=== PATIENT | female | born 1985 | race Caucasian/White ===

== ENCOUNTER 2018-02-17 18:32 | Emergency (ER) | payer OTHER ==
[2018-02-17 19:45] LABS: Urine Blood 1+ (NEG); Urine Glucose NEGATIVE (NEG); Urine Protein 1+ (NEG); Urine Specific Gravity 1.015 (1.005-1.030)
[2018-02-17] MEDS ORDERED: NA CHLORIDE 0.9% 1,000 ML ONE (20:18)
[2018-02-17] MEDS ORDERED: MORPHINE 4 MG/ML SYR ONE (20:18)
[2018-02-17] MEDS ORDERED: ONDANSETRON 4 MG/2 ML VIAL ONE (20:18)
[2018-02-17 20:25] LABS: Absolute Monocytes 0.8 K/uL (0.1-1.3); Absolute Neutrophil 9.4 K/uL (1.8-8.0); Basophils % 0.8 % (0-1.3); Eosinophils % 2.6 % (0-4.4); Hematocrit 40.4 % (36.0-45.0); Lymphocytes % 27.3 % (15.3-44.8); MPV 8.5 fL (7.6-11.3); Monocytes % 5.2 % (3.3-12.3); RBC Red Blood Cell Count 4.88 M/uL (3.86-4.86)
[2018-02-17] MEDS ORDERED: CEFTRIAXONE/SWI 1gm 1 GM/10 ML SYR ONE (20:37)
[2018-02-17 20:48] LABS: ALT/SGPT 19 U/L (12-78); AST/SGOT 12 U/L (15-37); Albumin 3.6 g/dL (3.4-5.0); Alkaline Phosphatase 125 U/L (45-117); BUN Blood Urea Nitrogen 11 mg/dL (7-18); Bicarbonate 27 mmol/L (21-32); Bilirubin Direct < 0.1 mg/dL (0-0.2); Bilirubin Total 0.2 mg/dL (0.2-1.0); Glucose Level 89 mg/dL (74-106); Lipase 110 U/L (73-393); Potassium 3.8 mmol/L (3.5-5.1); Protein, Total 8.3 g/dL (6.4-8.2); Sodium Level 138 mmol/L (136-145)
[2018-02-17 20:53] LABS: Urine Bacteria 20-50 /HPF (<20); Urine Culture Reflex Order NOT NEEDED; Urine Mucus 2+ /HPF (NONE SEEN)
[2018-02-17 20:56] LABS: Blood Morphology Comment NOT SEEN (NOT SEEN); Platelet Estimate ADEQ; Urine White Blood Cell Casts OK
--- NOTE | 2018-02-17 21:16 | RAD REPORT ---
EXAM DESCRIPTION: CTAbdomen Pelvis W Contrast - 02/17/2018 9:03 pm CLINICAL HISTORY: Abdominal pain. FLANK PAIN COMPARISON: No comparisons TECHNIQUE: Biphasic CT imaging of the abdomen and pelvis was performed with 100 ml non-ionic IV cont rast. All CT scans are performed using dose optimization technique as appropriate and may include automated exposure control or mA/KV adjustment according to patient size. FINDINGS: The lung bases are clear.Cholecystectomy clips. The liver, spleen, pancreas, adrenal glands are within normal limits. Subtle thickening of the uroepi thelium of both collecting systems noted, greater on the left, which could indicate ascending urinary tract infection. No bowel obstruction, free air, free fluid or abscess. The appendix is normal. No evidence of signi ficant lymphadenopathy. No suspicious bony findings. IMPRESSION: Equivocal findings of ascending urinary tract infection is present. Advise correlation w ith urinalysis. Otherwise, no acute finding is demonstrated.
--- NOTE | 2018-02-17 21:44 | EDPHYS ---
Physician Documentation [facility] Name: Yuliya Sharpe Age: 32 yrs Sex: Female : 1985 Arrival Date: 02/17/2018 Time: 18:35 Bed 19 Private MD: ED Physician Josesito Lopez HPI: 02/17 20:00 This 32 yrs old Female presents to ER via Ambulatory with complaints of Low pm1 Back Pain. 20:00 The patient presents with pain that is acute. The symptoms are located in the low back. pm1 The pain does not radiate. The problem was sustained from unknown cause. Onset: The symptoms/episode began/occurred 1 month(s) ago. Modifying factors: The patient symptoms are alleviated by nothing, the patient symptoms are aggravated by nothing. Associated signs and symptoms: Pertinent negatives: abdominal pain, dysuria, fever, nausea, vomiting. Severity of symptoms: in the emergency department the symptoms are actually worse. The patient has not experienced similar symptoms in the past. Patient with urinary tract symptoms about 1 month ago that she treated with OTC medications and cranberry juice. Symptoms of burning with urination have resolved but she has had some on and off lower back pain for the past month that is worse the past 3 days. 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 - Social history:: Smoking status: Patient/guardian denies using tobacco. - Ebola Screening: : No symptoms or risks identified at this time. ROS: 20:00 Constitutional: Negative for fever, chills, and weight loss, Eyes: Negative for injury, pm1 pain, redness, and discharge, ENT: Negative for injury, pain, and discharge, Neck: Negative for injury, pain, and swelling, Cardiovascular: Negative for chest pain, palpitations, and edema, Respiratory: Negative for shortness of breath, cough, wheezing, and pleuritic chest pain, Abdomen/GI: Negative for abdominal pain, nausea, vomiting, diarrhea, and constipation. 20:00 : Negative for injury, bleeding, discharge, and swelling, MS/Extremity: Negative for injury and deformity, Skin: Negative for injury, rash, and discoloration, Neuro: Negative for headache, weakness, numbness, tingling, and seizure. 20:00 Back: Positive for of the low back area, pain. Exam: 20:00 Constitutional: This is a well developed, well nourished patient who is awake, alert, pm1 and in no acute distress. Head/Face: Normocephalic, atraumatic. Eyes: Pupils equal round and reactive to light, extra-ocular motions intact. Lids and lashes normal. Conjunctiva and sclera are non-icteric and not injected. Cornea within normal limits. Periorbital areas with no swelling, redness, or edema. ENT: Nares patent. No nasal discharge, no septal abnormalities noted. Tympanic membranes are normal and external auditory canals are clear. Oropharynx with no redness, swelling, or masses, exudates, or evidence of obstruction, uvula midline. Mucous membranes moist. Neck: Trachea midline, no thyromegaly or masses palpated, and no cervical lymphadenopathy. Supple, full range of motion without nuchal rigidity, or vertebral point tenderness. No Meningismus. Chest/axilla: Normal chest wall appearance and motion. Nontender with no deformity. No lesions are appreciated. Cardiovascular: Regular rate and rhythm with a normal S1 and S2. No gallops, murmurs, or rubs. Normal PMI, no JVD. No pulse deficits. Respiratory: Lungs have equal breath sounds bilaterally, clear to auscultation and percussion. No rales, rhonchi or wheezes noted. No increased work of breathing, no retractions or nasal flaring. Abdomen/GI: Soft, non-tender, with normal bowel sounds. No distension or tympany. No guarding or rebound. No evidence of tenderness throughout. 20:00 Skin: Warm, dry with normal turgor. Normal color with no rashes, no lesions, and no evidence of cellulitis. MS/ Extremity: Pulses equal, no cyanosis. Neurovascular intact. Full, normal range of motion. 20:00 Back: pain, that is mild, of the low back area. 20:00 Neuro: Orientation: is normal, Motor: is normal, moves all fours, Gait: is steady, at a normal pace, without difficulty. Vital Signs: 19:30 BP 128 / 94; Pulse 98; Resp 16; Temp 97.3; Pulse Ox 100% on R/A; Weight 92.99 kg; aa1 Height 5 ft. 0 in. (152.40 cm); Pain 9/10; 20:26 BP 132 / 92; Pulse 97; Resp 18; Pulse Ox 100% on R/A; ca1 21:42 BP 131 / 91; Pulse 99; Resp 18; Pulse Ox 100% on R/A; ca1 19:30 Body Mass Index 40.04 (92.99 kg, 152.40 cm) aa1 MDM: 19:15 Patient medically screened. chanda 21:43 Data reviewed: vital signs. Data interpreted: Pulse oximetry: on room air is 100 %. pm1 Interpretation: normal. Counseling: I had a detailed discussion with the patient and/or guardian regarding: the historical points, exam findings, and any diagnostic results supporting the discharge/admit diagnosis, lab results, radiology results, the need for outpatient follow up, to return to the emergency department if symptoms worsen or persist or if there are any questions or concerns that arise at home. 02/17 19:34 Order name: Urine Dipstick--Ancillary (enter results); Complete Time: 20: [facility] 02/17 19:34 Order name: Urine --Ancillary (enter results); Complete Time: 20:17 [facility] 02/17 19:35 Order name: Basic Metabolic Panel; Complete Time: 21: pm02/17 19:35 Order name: CBC with Diff; Complete Time: 21: 02/17 19:35 Order name: Creatinine for Radiology; Complete Time: 21:02/17 19:35 Order name: Hepatic Function; Complete Time: 21: pm02/17 19:35 Order name: CT Abd/Pelvis - W/Contrast: IV contrast only; Complete Time: 21:38 pm02/17 19:35 Order name: Lipase; Complete Time: 21: 02/17 19:36 Order name: Urine Microscopic Only; Complete Time: 21: pm1 02/17 20:17 Order name: Urine Culture [facility] 02/17 20:31 Order name: CBC Smear Scan; Complete Time: 21: EDSD 02/17 19:35 Order name: IV Saline Lock; Complete Time: 20:13 pm1 02/17 19:35 Order name: Labs collected and sent; Complete Time: 20:13 pm1 02/17 19:36 Order name: Urine Dipstick-Ancillary (obtain specimen); Complete Time: 19:54 pm1 02/17 19:36 Order name: Urine Test (obtain specimen); Complete Time: 19:54 pm1 Administered Medications: 20:10 Drug: morphine 4 mg Route: IVP; Site: left antecubital; aa1 21:10 Follow up: Response: No adverse reaction; Pain is decreased ca1 20:15 Drug: Zofran 4 mg Route: IVP; Site: left antecubital; aa1 21:30 Follow up: Response: No adverse reaction; Nausea is decreased ca1 20:20 Drug: NS 0.9% 1000 ml Route: IV; Rate: 1000 ml; Site: left antecubital; aa1 20:25 Drug: Rocephin 1 grams Route: IV; Rate: calculated rate; Site: left antecubital; aa Disposition: 02/17/18 21:43 Discharged to Home. Impression: Urinary tract infection, site not specified. - Condition is Stable. - Discharge Instructions: Urinary Tract Infection, Adult. - Prescriptions for Levaquin 750 mg Oral Tablet - take 1 tablet by ORAL route once daily for 5 days; 5 tablet. Tylenol- Codeine #3 300-30 mg Oral Tablet - take 2 tablets by ORAL route every 6 hours As needed; 20 tablet. - Medication Reconciliation Form, Thank You Letter, Antibiotic Education, Prescription Opioid Use, Work release form form. - Follow up: Emergency Department; When: As needed; Reason: Worsening of condition. Follow up: Private Physician; When: 2 - 3 days; Reason: Recheck today's complaints, Continuance of care, Re-evaluation by your physician. - Problem is new. - Symptoms have improved. Addendum: 02/21/2018 06:56 Co-signature as Attending Physician, Josesito Lopez MD I agree with the assessment and c pope plan of care. Signatures: Dispatcher [employer] Claudia Jessica RN RN aa1 Josesito Lopez MD MD cha Marinas, Patrick, COMMERCIAL CENTER MANAGER COMMERCIAL CENTER MANAGER pm1 Aminta Flores RN RN ca1 Corrections: (The following items were deleted from the chart) 02/17 22:07 21:43 02/17/2018 21:43 Discharged to Home. Impression: Urinary tract infection, site ca1 not specified. Condition is Stable. Forms are Medication Reconciliation Form, Thank You Letter, Antibiotic Education, Prescription Opioid Use. Follow up: Emergency Department; When: As needed; Reason: Worsening of condition. Follow up: Private Physician; When: 2 - 3 days; Reason: Recheck today's complaints, Continuance of care, Re-evaluation by your physician. Problem is new. Symptoms have improved. pm1
--- NOTE | 2018-02-17 21:44 | ER ---
Nurse's Notes [facility] Name: Yuliya Sahrpe Age: 32 yrs Sex: Female : 1985 Arrival Date: 02/17/2018 Time: 18:35 Bed 19 Private MD: Diagnosis: Urinary tract infection, site not specified Presentation: 02/17 19:26 Presenting complaint: Patient states: int L low back pain x 1 month but reports pain aa1 has become worse today. States pain sometimes radiates to LLQ and had N/V a few days ago. Transition of care: patient was not received from another setting of care. Onset of symptoms was January 2018. Risk Assessment: Do you want to hurt yourself or someone else? Patient reports no desire to harm self or others. Initial Sepsis Screen: Does the patient meet any 2 criteria? HR > 90 bpm. Does the patient have a suspected source of infection? No. Patient's initial sepsis screen is negative. Care prior to arrival: None. 19:26 Method Of Arrival: Ambulatory aa1 19:26 Acuity: LIT 3 aa1 Triage Assessment: 19:30 General: Appears in no apparent distress. comfortable, Behavior is calm, cooperative, aa1 appropriate for age. 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 - Social history:: Smoking status: Patient/guardian denies using tobacco. - Ebola Screening: : No symptoms or risks identified at this time. Screenin:35 Abuse screen: Denies threats or abuse. Denies injuries from another. Nutritional ca1 screening: No deficits noted. Tuberculosis screening: No symptoms or risk factors identified. Fall Risk None identified. Assessment: 19:35 General: Appears in no apparent distress. uncomfortable, Behavior is calm, cooperative, ca1 appropriate for age. Pain: Complains of pain in abdomen Pain radiates to back Pain currently is 8 out of 10 on a pain scale. 19:35 Neuro: Level of Consciousness is awake, alert, obeys commands, Oriented to person, ca1 place, time, situation. Cardiovascular: Heart tones S1 S2 present Capillary refill < 3 seconds Patient's skin is warm and dry. Respiratory: Airway is patent Trachea midline Respiratory effort is even, unlabored, Respiratory pattern is regular, symmetrical, Breath sounds are clear bilaterally. GI: Abdomen is round non-distended, Bowel sounds present X 4 quads. Abd is soft Abdomen is tender to palpation Reports nausea, vomiting, Patient currently denies constipation, diarrhea. : No signs and/or symptoms were reported regarding the genitourinary system. EENT: No signs and/or symptoms were reported regarding the EENT system. Derm: Skin is intact, is healthy with good turgor, Skin is pink, warm \T\ dry. Musculoskeletal: Circulation, motion, and sensation intact. Capillary refill < 3 seconds. 20:46 Reassessment: Patient appears in no apparent distress at this time. Patient and/or ca1 family updated on plan of care and expected duration. Pain level reassessed. Patient is alert, oriented x 3, equal unlabored respirations, skin warm/dry/pink. 21:52 Reassessment: Patient appears in no apparent distress at this time. Patient and/or ca1 family updated on plan of care and expected duration. Pain level reassessed. Patient is alert, oriented x 3, equal unlabored respirations, skin warm/dry/pink. Vital Signs: 19:30 BP 128 / 94; Pulse 98; Resp 16; Temp 97.3; Pulse Ox 100% on R/A; Weight 92.99 kg; aa1 Height 5 ft. 0 in. (152.40 cm); Pain 9/10; 20:26 BP 132 / 92; Pulse 97; Resp 18; Pulse Ox 100% on R/A; ca1 21:42 BP 131 / 91; Pulse 99; Resp 18; Pulse Ox 100% on R/A; ca1 19:30 Body Mass Index 40.04 (92.99 kg, 152.40 cm) aa1 ED Course: 18:35 Patient arrived in ED. rg4 19:11 Gerson Tyler NP is PHCP. pm1 19:11 Josesito Lopez MD is Attending Physician. pm1 19:14 Aminta Flores RN is Primary Nurse. ca1 19:29 Triage completed. aa1 19:30 Arm band placed on right wrist. aa1 19:31 Urine collected: clean catch specimen. aa1 19:35 Patient has correct armband on for positive identification. Placed in gown. Bed in low ca1 position. Call light in reach. Side rails up X 1. manager monitoring on. Pulse ox on. NIBP on. Warm blanket given. 20:02 Radiology exam delayed due to lab results not completed at this time. (BUN/Creatinine). jj2 20:05 Initial lab(s) drawn, by me, sent to lab. Inserted saline lock: 20 gauge in left aa1 antecubital area, using aseptic technique. Blood collected. 20:25 Radiology exam delayed due to lab results not completed at this time. (BUN/Creatinine). jj2 20:[address] via wheelchair. jj2 21:03 CT Abd/Pelvis - W/Contrast: IV contrast only In Process Unspecified. EDMS 21:11 CT completed. Patient tolerated procedure well. Patient moved back from CT. vm2 22:05 No provider procedures requiring assistance completed. ca1 22:05 IV discontinued, intact, bleeding controlled, No redness/swelling at site. ca1 Administered Medications: 20:10 Drug: morphine 4 mg Route: IVP; Site: left antecubital; aa1 21:10 Follow up: Response: No adverse reaction; Pain is decreased ca1 20:15 Drug: Zofran 4 mg Route: IVP; Site: left antecubital; aa1 21:30 Follow up: Response: No adverse reaction; Nausea is decreased ca1 20:20 Drug: NS 0.9% 1000 ml Route: IV; Rate: 1000 ml; Site: left antecubital; aa1 20:25 Drug: Rocephin 1 grams Route: IV; Rate: calculated rate; Site: left antecubital; aa1 Outcome: 21:43 Discharge ordered by MD. pm1 22:05 Discharged to home ambulatory, with family. ca1 22:05 Condition: stable 22:05 Discharge instructions given to patient, family, Instructed on discharge instructions, follow up and referral plans. medication usage, Demonstrated understanding of instructions, follow-up care, medications, Prescriptions given X 2. 22:07 Patient left the ED. ca1 Addendum: 02/20/2018 08:06 Addendum: Culture Results: Positive urine culture. No further action required. Bacteria i w sensitive to prescribed antibiotic. Signatures: Dispatcher [employer] EDMS Irion, Claudia, RN RN aa1 Eliecer, Jabier jMirta Ragsdale RN RN iw Gerson Tyler, SPECIAL PROCEDURE TECH SPECIAL PROCEDURE TECH pm1 Lee Ann Funez4 Maddie Richardson 2 Aminta Flores RN RN ca1 Corrections: (The following items were deleted from the chart) 02/18 01:30 01:29 Response: No adverse reaction; Nausea is decreased ca1 ca1
== END 2018-02-17 22:07 | disposition home or self-care (01) ==
LOC: ER 18:32
DX: N39.0 Urinary tract infection, site not specified (principal)
CPT/HCPCS: 36415; 74177; 80048; 80076; 81003; 81015; 81025; 83690; 85025; 87077; 87086; 87088; 87186; 96374; 96375; 99285; J0696; J2405; J7030; Q9967

== ENCOUNTER 2018-05-18 18:41 | Emergency (ER) | payer OTHER ==
[2018-05-18 19:28] LABS: Urine Blood TRACE (NEG); Urine Glucose NEGATIVE (NEG); Urine Protein NEGATIVE (NEG); Urine Specific Gravity 1.025 (1.005-1.030); Urine pH 5.5 (5.0-7.0)
[2018-05-18] MEDS ORDERED: DIPHENHYDRAMINE 50 MG/ML VIAL ONE (19:28)
[2018-05-18] MEDS ORDERED: NA CHLORIDE 0.9% 1,000 ML ONE (19:28)
[2018-05-18] MEDS ORDERED: METOCLOPRAMIDE 10 MG/2mL INJ ONE (19:28)
[2018-05-18 19:31] LABS: Absolute Lymphocytes (CBC) 3.4 K/uL (0.7-4.9); Absolute Monocytes 0.8 K/uL (0.1-1.3); Absolute Neutrophil 9.2 K/uL (1.8-8.0); Basophils % 0.5 % (0-1.3); Hematocrit 39.9 % (36.0-45.0); MPV 8.4 fL (7.6-11.3); Monocytes % 5.7 % (3.3-12.3); RBC Red Blood Cell Count 4.87 M/uL (3.86-4.86)
[2018-05-18 19:46] LABS: ALT/SGPT 25 U/L (12-78); AST/SGOT 17 U/L (15-37); Albumin 3.8 g/dL (3.4-5.0); Alkaline Phosphatase 103 U/L (45-117); BUN Blood Urea Nitrogen 10 mg/dL (7-18); Bicarbonate 28 mmol/L (21-32); Bilirubin Direct 0.1 mg/dL (0-0.2); Bilirubin Total 0.3 mg/dL (0.2-1.0); Glucose Level 111 mg/dL (74-106); Lipase 106 U/L (73-393); Potassium 3.8 mmol/L (3.5-5.1); Protein, Total 8.3 g/dL (6.4-8.2); Sodium Level 142 mmol/L (136-145)
--- NOTE | 2018-05-18 19:55 | RAD REPORT ---
EXAM DESCRIPTION: CT - Head Brain Wo Cont - 05/18/2018 7:30 pm CLINICAL HISTORY: Headache COMPARISON: None. TECHNIQUE: Computed axial tomography of the head was obtained. IV contrast was not requested. All CT scans are performed using dose optimization technique as appropriate and may include automated exposure control or mA/KV adjustment according to patient size. FINDINGS: An intracranial bleed is not seen . The ventricles are normal in caliber. A prominent fluid collection within the posterior aspect of the posterior fossa most likely represent s a regan cisterna magna which is a normal variant Fluid within the sinuses/ mastoids is not seen. IMPRESSION: No acute intracranial abnormality is seen. If patient's symptoms persist MRI of the bra in would be recommended.
[2018-05-18] MEDS ORDERED: DEXAMETHASONE 10 MG/ML VIAL ONE (20:30)
[2018-05-18] MEDS ORDERED: KETOROLAC 30 MG/ML INJ ONE (20:30)
--- NOTE | 2018-05-18 20:47 | EDPHYS ---
Physician Documentation [facility] Name: Yuliya Sharpe Age: 33 yrs Sex: Female : 1985 Arrival Date: 05/18/2018 Time: 18:44 Bed 6 Private MD: ED Physician Jamey Peterson HPI: 05/18 18:56 This 33 yrs old Female presents to ER via Ambulatory with complaints of jmm Headache, Vomiting. 18:56 The patient complains of pain to the top of head, forehead, right spiritism and left jmm spiritism. Onset: The symptoms/episode began/occurred acutely, 1 hour(s) ago. Associated signs and symptoms: Pertinent positives: vomiting. Headache History: The patient has had previous headaches. This is a 33 year old female that presents to the ED with complaints of headache beginning approx 1 hour ago with vomiting. Patient denies history of migraine headaches but states she felt similar during when diagnosed with pancreatis. Patient denies abdominal pain. . 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 - Social history:: Smoking status: unknown. - Ebola Screening: : No symptoms or risks identified at this time. ROS: 18:56 Constitutional: Negative for fever, chills, and weight loss, Cardiovascular: Negative jmm for chest pain, palpitations, and edema, Respiratory: Negative for shortness of breath, cough, wheezing, and pleuritic chest pain. 18:56 Abdomen/GI: Positive for nausea, vomiting, Negative for abdominal pain. 18:56 Neuro: Positive for headache. 18:56 All other systems are negative. Exam: 18:56 Constitutional: This is a well developed, well nourished patient who is awake, alert, jmm and in obvious pain. Head/Face: atraumatic. Eyes: EOMI, no conjunctival erythema appreciated ENT: Moist Mucus Membranes Neck: Trachea midline, Supple Chest/axilla: Normal chest wall appearance and motion. Cardiovascular: Regular rate and rhythm. No edema appreciated Respiratory: Normal respirations, no respiratory distress appreciated Abdomen/GI: Non distended, soft Skin: General appearance color normal MS/ Extremity: Moves all extremities, no obvious deformities appreciated, no edema noted to the lower extremities 18:56 Neuro: Orientation: is normal, Mentation: is normal, Memory: is normal, Motor: is normal, Gait: is steady. 18:56 Psych: Behavior/mood is pleasant, cooperative. Vital Signs: 18:46 BP 126 / 96; Pulse 103; Resp 26; Temp 96.8; Pulse Ox 99% ; sv 19:51 BP 123 / 97; Pulse 78; Resp 16; Temp 98.7(O); Pulse Ox 100% on R/A; Pain 5/10; ak1 20:47 BP 114 / 69; Pulse 80; Resp 16; Temp 98.7; Pulse Ox 100% on R/A; ak1 MDM: 18:56 Patient medically screened. [facility] 20:30 Data reviewed: lab test result(s), radiologic studies, CT scan. [facility] 20:30 ED course: Patient;s pain is relieved in the ED. CT negative. Patient states she feels jm much better. I do not suspect SAH after negative CT findings within a 6 hour window. Patient is advised to follow up with neurology for further evaluation and otherwise given strict return precautions. patient understood and agrees with the plan of care. . 20:44 Data reviewed: vital signs, nurses notes. [facility] 05/18 19:01 Order name: Basic Metabolic Panel; Complete Time: 20:11 [facility] 05/18 19:01 Order name: CBC with Diff; Complete Time: 20:11 [facility] 05/18 19:01 Order name: Creatinine for Radiology; Complete Time: 20:11 [facility] 05/18 19:01 Order name: Hepatic Function; Complete Time: 20:11 [facility] 05/18 19:01 Order name: Lipase; Complete Time: 20:11 [facility] 05/18 19:17 Order name: Urine Dipstick--Ancillary (enter results); Complete Time: 19:31 cm6 05/18 19:01 Order name: IV Saline Lock; Complete Time: 19:19 [facility] 05/18 19:04 Order name: CT Head Brain wo Cont; Complete Time: 20:11 [facility] 05/18 19:17 Order name: Urine --Ancillary (enter results); Complete Time: 19:31 cm6 05/18 19:01 Order name: Labs collected and sent; Complete Time: 19: [facility] 05/18 19:01 Order name: Urine Dipstick-Ancillary (obtain specimen); Complete Time: : [facility] Administered Medications: 19:25 Drug: diphenhydrAMINE 12.5 mg Route: IVP; Site: left antecubital; ak1 19:45 Follow up: Response: No adverse reaction ak1 19:25 Drug: Reglan 10 mg Route: IVP; Site: left antecubital; ak1 19:44 Follow up: Response: No adverse reaction ak1 19:44 Drug: NS 0.9% 1000 ml Route: IV; Rate: 1 bolus; Site: left antecubital; ak1 21:01 Follow up: IV Status: Order to discontinue infusion ak1 20:23 Drug: Ketorolac 30 mg Route: IVP; Site: left antecubital; ak1 21:00 Follow up: Response: No adverse reaction ak1 20:23 Drug: Decadron - Dexamethasone 10 mg Route: IVP; Site: left antecubital; ak1 21:00 Follow up: Response: No adverse reaction ak1 Disposition: 05/18/18 20:45 Discharged to Home. Impression: Headache. - Condition is Stable. - Discharge Instructions: Migraine Headache. - Medication Reconciliation Form, Thank You Letter, Antibiotic Education, Prescription Opioid Use, Work release form form. - Follow up: Tommy Antony MD; When: 2 - 3 days; Reason: Recheck today's complaints, Continuance of care, Re-evaluation by your physician. Addendum: 05/20/2018 19:46 Co-signature as Attending Physician, Jamey Peterson MD. r n Signatures: Dispatcher [employer] EDTeresita Thakkar RN RN sv Mickail, Joel, PA PA [facility] Jamey Peterson MD MD rn Krenek, Amber, RN RN ak1 Corrections: (The following items were deleted from the chart) 05/18 21:05 20:45 05/18/2018 20:45 Discharged to Home. Impression: Headache. Condition is Stable. ak1 Forms are Medication Reconciliation Form, Thank You Letter, Antibiotic Education, Prescription Opioid Use. Follow up: Tommy Antony; When: 2 - 3 days; Reason: Recheck today's complaints, Continuance of care, Re-evaluation by your physician. [email or web address]
--- NOTE | 2018-05-18 20:47 | ER ---
Nurse's Notes [facility] Name: Yuliya Sharpe Age: 33 yrs Sex: Female : 1985 Arrival Date: 05/18/2018 Time: 18:44 Bed 6 Private MD: Diagnosis: Headache Presentation: 05/18 18:45 Presenting complaint: Patient states: was cleaning the pool with a net and started sv having an occipital headache that went to the front and started feeling nauseous and then started vomiting. Headache at this time is in the front. Transition of care: patient was not received from another setting of care. Onset of symptoms was May 18, 2018. Care prior to arrival: None. 18:45 Method Of Arrival: Ambulatory sv 18:45 Acuity: LIT 3 sv 20:53 Risk Assessment: Do you want to hurt yourself or someone else? Patient reports no ak1 desire to harm self or others. Initial Sepsis Screen: Does the patient meet any 2 criteria? No. Patient's initial sepsis screen is negative. Does the patient have a suspected source of infection? No. Patient's initial sepsis screen is negative. Triage Assessment: 19:52 Headache History: The patient has had previous headaches and this one is similar to ak1 previous episodes. General: Appears uncomfortable. Pain: Pain currently is 5 out of 10 on a pain scale. Pain began 1 day ago. Also complains of nausea. 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 - Social history:: Smoking status: unknown. - Ebola Screening: : No symptoms or risks identified at this time. Screenin:26 Abuse screen: Denies threats or abuse. Denies injuries from another. Nutritional ak1 screening: No deficits noted. Tuberculosis screening: No symptoms or risk factors identified. Fall Risk None identified. Assessment: 19:26 General: Appears in no apparent distress. uncomfortable, Behavior is calm, cooperative, ak1 appropriate for age. Pain: Complains of pain in headache. 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 Gait is steady, Speech is normal, Facial symmetry appears normal. Cardiovascular: No deficits noted. Respiratory: No deficits noted. GI: No signs and/or symptoms were reported involving the gastrointestinal system. : No signs and/or symptoms were reported regarding the genitourinary system. EENT: No signs and/or symptoms were reported regarding the EENT system. Derm: No signs and/or symptoms reported regarding the dermatologic system. Musculoskeletal: No signs and/or symptoms reported regarding the musculoskeletal system. Vital Signs: 18:46 BP 126 / 96; Pulse 103; Resp 26; Temp 96.8; Pulse Ox 99% ; sv 19:51 BP 123 / 97; Pulse 78; Resp 16; Temp 98.7(O); Pulse Ox 100% on R/A; Pain 5/10; ak1 20:47 BP 114 / 69; Pulse 80; Resp 16; Temp 98.7; Pulse Ox 100% on R/A; ak1 ED Course: 18:44 Patient arrived in ED. tw3 18:46 Triage completed. sv 18:56 Jayce Solorio PA is PHCP. jmm 18:56 Jamey Peterson MD is Attending Physician. jmm 19:06 Miriam Centeno, LILLIE is Primary Nurse. ak1 19:12 Patient moved to [place]. [place] 19:26 Inserted saline lock: 20 gauge in left antecubital area, using aseptic technique. Blood oe collected. 19:26 Patient has correct armband on for positive identification. Bed in low position. Call ak1 light in reach. Side rails up X 1. Pulse ox on. NIBP on. 19:29 CT Head Brain wo Cont In Process Unspecified. EDMS 19:30 CT completed. Patient tolerated procedure well. Patient moved back from [place]. vm2 20:45 Tommy Antony MD is Referral Physician. [facility] 20:48 No provider procedures requiring assistance completed. IV discontinued, intact, ak1 bleeding controlled, No redness/swelling at site. Pressure dressing applied. 20:48 Patient placed in an exam room, on a stretcher, Patient notified of wait time. ak1 Administered Medications: 19:25 Drug: diphenhydrAMINE 12.5 mg Route: IVP; Site: left antecubital; ak1 19:45 Follow up: Response: No adverse reaction ak1 19:25 Drug: Reglan 10 mg Route: IVP; Site: left antecubital; ak1 19:44 Follow up: Response: No adverse reaction ak1 19:44 Drug: NS 0.9% 1000 ml Route: IV; Rate: 1 bolus; Site: left antecubital; ak1 21:01 Follow up: IV Status: Order to discontinue infusion ak1 20:23 Drug: Ketorolac 30 mg Route: IVP; Site: left antecubital; ak1 21:00 Follow up: Response: No adverse reaction ak1 20:23 Drug: Decadron - Dexamethasone 10 mg Route: IVP; Site: left antecubital; ak1 21:00 Follow up: Response: No adverse reaction ak1 Outcome: 20:45 Discharge ordered by . iftikhar 20:48 Discharged to home ambulatory, with family. ak1 20:48 Condition: good 20:48 Discharge instructions given to patient, family, Instructed on discharge instructions, follow up and referral plans. Demonstrated understanding of instructions, follow-up care. 21:05 Patient left the ED. ak1 Signatures: Dispatcher [employer] EDTeresita Thakkar, RN Jayce Mendenhall PA PA jmm Krenek, Amber, RN RN ak1 Chuy Krishnan [place] oe Wade, Tia Maddie Malone [facility]
== END 2018-05-18 21:05 | disposition home or self-care (01) ==
LOC: ER 18:41
DX: R51 Headache (principal)
CPT/HCPCS: 36415; 70450; 80048; 80076; 81003; 81025; 83690; 85025; 96361; 96374; 96375; 99284; J1100; J2765; J7030

== ENCOUNTER 2020-10-15 18:24 | Emergency (ER) | payer OTHER, SELFPAY ==
--- OUTSIDE RECORDS SUMMARY | 2020-10-15 18:28 | XMS REPORT | Continuity of Care Document ---
:1985 Author Organization [facility] t Address [address] [place] [address] Dr. Holland [address] [place] [id number] Care Team Providers Name Role Phone Unavailable Unavailable Unavailable Problems This patient has no known problems. Allergies, Adverse Reactions, Alerts This patient has no known allergies or adverse reactions. Medications This patient has no known medications. Procedures This patient has no known procedures. Results This patient has no known results.
[2020-10-15 20:36] LABS: Absolute Lymphocytes (CBC) 1.8 K/uL (0.7-4.9); Basophils % 0.3 % (0-1.3); Hematocrit 41.5 % (36.0-45.0); Lymphocytes % 18.1 % (15.3-44.8); MPV 7.9 fL (7.6-11.3); RBC Red Blood Cell Count 5.11 M/uL (3.86-4.86)
[2020-10-15 20:48] LABS: BUN Blood Urea Nitrogen 8 mg/dL (7-18); Bicarbonate 27 mmol/L (21-32); Glucose Level 116 mg/dL (74-106); Potassium 3.4 mmol/L (3.5-5.1); Sodium Level 136 mmol/L (136-145)
[2020-10-15] MEDS ORDERED: NA CHLORIDE 0.9% 2,000 ML ONE (20:49)
[2020-10-15] MEDS ORDERED: ONDANSETRON 4 MG/2 ML VIAL ONE (20:49)
--- NOTE | 2020-10-15 22:27 | ER ---
Nurse's Notes [facility] Name: Yuliya Sharpe Age: 35 yrs Sex: Female : 1985 Arrival Date: 10/15/2020 Time: 18:26 Bed 16 Private MD: Diagnosis: Dehydration;SARS-associated coronavirus as the cause of diseases classified elsewhere;Dizziness and giddiness;Diarrhea, unspecified;Vomiting Presentation: 10/15 18:55 Chief complaint: Patient states: started feeling bad Tuesday. got tested and was tw2 POSITIVE for COVID Tuesday. I am just nauseous and lightheaded. Weakness and fatigue. Coronavirus screen: diarrhea, fatigue, fever, nausea, vomiting. Client presents with at least one sign or symptom that may indicate coronavirus-19. Standard/surgical mask placed on the client. Provider contacted for isolation considerations. Ebola Screen: Patient denies travel to an Ebola-affected area in the 21 days before illness onset. Initial Sepsis Screen: Does the patient meet any 2 criteria? No. Patient's initial sepsis screen is negative. Does the patient have a suspected source of infection? No. Patient's initial sepsis screen is negative. Risk Assessment: Do you want to hurt yourself or someone else? Patient reports no desire to harm self or others. Onset of symptoms was October 15, 2020. 18:55 Method Of Arrival: Ambulatory tw2 18:55 Acuity: LIT 2 tw2 Triage Assessment: 18:58 General: Appears uncomfortable, Behavior is calm, cooperative, appropriate for age. tw2 Pain: Complains of pain in abdomen. GI: Reports intolerance of fluids, intolerance of food, nausea, vomiting. Historical: - Allergies: 18:57 No Known Allergies; tw2 - Home Meds: 18:57 None [Active]; tw2 - PMHx: 18:57 Kidney stones; precancerous cervical cells; tw2 - PSHx: 18:57 Cholecystectomy; tw2 - Immunization history:: Client reports having NOT received the Covid vaccine. - Social history:: Smoking status: Patient denies any tobacco usage or history of. - Family history:: not pertinent. - Hospitalizations: : No recent hospitalization is reported. Screenin:00 Abuse screen: Denies threats or abuse. Denies injuries from another. Nutritional bs2 screening: No deficits noted. Tuberculosis screening: No symptoms or risk factors identified. Fall Risk None identified. Assessment: 20:00 General: Appears in no apparent distress. uncomfortable, obese, well groomed, well bs2 developed, well nourished, Behavior is calm, cooperative, appropriate for age. Pain: Complains of pain in abdomen, headache Pain currently is 3 out of 10 on a pain scale. Neuro: No deficits noted. GI: Abdomen is obese, Pt is actively vomiting bile, Stools are reported to be diarrhea. Bowel sounds present X 4 quads. Reports lower abdominal pain, upper abdominal pain, cramping, diarrhea, nausea, vomiting, Patient currently denies bloody stool. : No signs and/or symptoms were reported regarding the genitourinary system. EENT: No signs and/or symptoms were reported regarding the EENT system. Derm: No signs and/or symptoms reported regarding the dermatologic system. 20:20 Cardiovascular: Rhythm is sinus tachycardia. Respiratory: Respiratory: Reports cough bs2 that is productive. Vital Signs: 18:55 Pulse 120; Resp 19; Temp 99.9(O); Pulse Ox 95% on R/A; tw2 21:00 BP 120 / 86; Pulse 92; Resp 19; Pulse Ox 96% ; Pain 2/10; bs2 22:00 BP 109 / 75; Pulse 91; Resp 18; Pulse Ox 96% ; Pain 2/10; bs2 23:00 BP 127 / 82; Pulse 99; Resp 18; Temp 98.6; Pulse Ox 98% ; Pain 4/10; bs2 ED Course: 18:26 Patient arrived in ED. as 18:57 Triage completed. tw2 18:58 Arm band placed on. tw2 19:34 Jamey Peterson MD is Attending Physician. rn 19:59 Jennifer Huerta, LILLIE is Primary Nurse. bs2 20:00 Patient has correct armband on for positive identification. Bed in low position. Call bs2 light in reach. Side rails up X 1. Pulse ox on. NIBP on. Door closed. Noise minimized. Lights dimmed. Warm blanket given. 20:34 CBC with Diff Sent. bs2 20:34 Basic Metabolic Panel Sent. bs2 20:34 CBC with Automated Diff Sent. bs2 20:34 Basic Metabolic Panel Sent. bs2 23:10 No provider procedures requiring assistance completed. IV discontinued, intact, bs2 bleeding controlled, No redness/swelling at site. Administered Medications: 20:25 Drug: Zofran (Ondansetron) 4 mg Route: IVP; Site: left hand; bs2 23:36 Follow up: Response: No adverse reaction bs2 20:34 Drug: NS 0.9% 1000 ml Route: IV; Rate: 1000 ml; Site: left hand; bs2 23:36 Follow up: IV Status: Completed infusion; IV Intake: 1000ml bs2 20:34 Drug: NS 0.9% 1000 ml Route: IV; Rate: 1 bolus; Site: left hand; bs2 23:36 Follow up: IV Status: Completed infusion; IV Intake: 1000ml bs2 Intake: 23:36 IV: 1000ml; Total: 1000ml. bs2 23:36 IV: 1000ml; Total: 2000ml. bs2 Outcome: 22:27 Discharge ordered by MD. rn 23:10 Discharged to home ambulatory, with family. bs2 23:10 Condition: improved 23:10 Discharge instructions given to patient, Instructed on discharge instructions, follow up and referral plans. medication usage, Demonstrated understanding of instructions, follow-up care, medications, Prescriptions given X 1. 23:47 Patient left the ED. bs2 Signatures: Zee Haque Roman, MD MD rn Wise, Tara, RN RN tw2 Jennifer Huerta RN RN bs2 Corrections: (The following items were deleted from the chart) 18:59 18:55 Chief complaint: Patient states: started feeling bad Tuesday. got tested and was tw2 POSITIVE for COVID Tuesday. I am just nauseous and lightheaded. Weakness and fatigue. tw2 23:42 23:38 General: Appears in no apparent distress. uncomfortable, obese, well groomed, bs2 well developed, well nourished, Behavior is calm, cooperative, appropriate for age, bs2 23:42 23:38 Pain: Complains of pain in abdomen, headache Pain currently is 3 out of 10 on a bs2 pain scale. bs2 23:42 23:38 Neuro: No deficits noted. bs2 bs2 23:42 23:38 Cardiovascular: Rhythm is sinus tachycardia bs2 bs2 23:42 23:38 Respiratory: bs2 bs2 23:42 23:38 GI: Abdomen is obese, Pt is actively vomiting bile, Stools are reported to be bs2 diarrhea. Bowel sounds present X 4 quads. Reports lower abdominal pain, upper abdominal pain, cramping, diarrhea, nausea, vomiting, Patient currently denies bloody stool, bs2 23:38 : No signs and/or symptoms were reported regarding the genitourinary system. bs2bs2 : 23:38 EENT: No signs and/or symptoms were reported regarding the EENT system. bs2 bs2 23:38 Derm: No signs and/or symptoms reported regarding the dermatologic system. bs2 bs2 23:38 Respiratory: Reports cough that is productive, bs2 bs2
--- NOTE | 2020-10-15 22:28 | EDPHYS ---
Physician Documentation [facility] Name: Yuliya Sharpe Age: 35 yrs Sex: Female : 1985 Arrival Date: 10/15/2020 Time: 18:26 Bed 16 Private MD: ED Physician Jamey Peterson HPI: 10/15 20:11 This 35 yrs old Female presents to ER via Ambulatory with complaints of rn Vomiting/Diarrhea, Weakness, Cough - covid+. 20:11 The patient presents to the emergency department with nausea, vomiting, diarrhea. rn Onset: The symptoms/episode began/occurred 1.5 week(s) ago. Possible causes: Covid. The symptoms are aggravated by nothing. The symptoms are alleviated by nothing. Associated signs and symptoms: Pertinent positives: diarrhea, nausea, vomiting, Pertinent negatives: abdominal pain, fever, GI bleeding, hematuria. Severity of symptoms: At their worst the symptoms were moderate in the emergency department the symptoms are unchanged. The patient has not experienced similar symptoms in the past. The patient has not recently seen a physician. Patient reports 1.5 weeks ago diagnosed with Covid. Predominantly GI symptoms of nausea vomiting and diarrhea. Not able to keep fluids down and as a result is feeling lightheaded and dizzy especially when stands up. No syncope. Denies abdominal pain. Mild cough and denies shortness of breath.. Historical: - Allergies: 18:57 No Known Allergies; tw2 - Home Meds: 18:57 None [Active]; tw2 - PMHx: 18:57 Kidney stones; precancerous cervical cells; tw2 - PSHx: 18:57 Cholecystectomy; tw2 - Immunization history:: Client reports having NOT received the Covid vaccine. - Social history:: Smoking status: Patient denies any tobacco usage or history of. - Family history:: not pertinent. - Hospitalizations: : No recent hospitalization is reported. ROS: 20:11 Constitutional: Negative for fever, chills, and weight loss, Eyes: Negative for injury, rn pain, redness, and discharge, ENT: Negative for injury, pain, and discharge, Neck: Negative for injury, pain, and swelling, Cardiovascular: Negative for chest pain, palpitations, and edema, Respiratory: Positive for cough, negative for shortness of breath or pleuritic chest pain Abdomen/GI: Negative for abdominal pain, and constipation, Back: Negative for injury and pain, : Negative for injury, bleeding, discharge, and swelling, MS/Extremity: Negative for injury and deformity, Skin: Negative for injury, rash, and discoloration, Neuro: Negative for headache,numbness, tingling, and seizure. 20:11 All other systems are negative. rn Exam: 20:11 Constitutional: This is a well developed, well nourished patient who is awake, alert, rn and in no acute distress. Head/Face: Normocephalic, atraumatic. Eyes: Pupils equal round and reactive to light, extra-ocular motions intact. Lids and lashes normal. Conjunctiva and sclera are non-icteric and not injected. Cornea within normal limits. Periorbital areas with no swelling, redness, or edema. ENT: Dry mucous membranes, no stridor Cardiovascular: Tachycardic, regular. No pulse deficits. Respiratory: No increased work of breathing, no retractions or nasal flaring. Abdomen/GI: Soft, nontender. Skin: Warm, dry, no cyanosis. MS/ Extremity: Pulses equal, no cyanosis. Equal circumference. Neuro: Awake and alert, GCS 15, oriented to person, place, time, and situation. Motor strength 5/5 in all extremities. Sensory grossly intact. Vital Signs: 18:55 Pulse 120; Resp 19; Temp 99.9(O); Pulse Ox 95% on R/A; tw2 21:00 BP 120 / 86; Pulse 92; Resp 19; Pulse Ox 96% ; Pain 2/10; bs2 22:00 BP 109 / 75; Pulse 91; Resp 18; Pulse Ox 96% ; Pain 2/10; bs2 23:00 BP 127 / 82; Pulse 99; Resp 18; Temp 98.6; Pulse Ox 98% ; Pain 4/10; bs2 MDM: 19:34 Patient medically screened. rn 22:25 Differential diagnosis: viral gastroenteritis, gastroenteritis, Covid, dehydration, rn volume depletion. Data reviewed: vital signs, nurses notes, lab test result(s), and as a result, I will discharge patient. Data interpreted: Pulse oximetry: on room air is 97 %. Interpretation: normal. Data interpreted: campus monitor: rate is 88 beats/min, rhythm is normal sinus rhythm, regular, with no ectopy, Interpretation: normal rate, normal rhythm. Counseling: I had a detailed discussion with the patient and/or guardian regarding: the historical points, exam findings, and any diagnostic results supporting the discharge/admit diagnosis, lab results, the need for outpatient follow up, to return to the emergency department if symptoms worsen or persist or if there are any questions or concerns that arise at home. Response to treatment: the patient's symptoms have markedly improved after treatment, patient is well hydrated. Ambulatory to bathroom and feels better denies lightheadedness or dizziness. Heart rate markedly improved to 80s.. Special discussion: I discussed with the patient/guardian in detail that at this point there is no indication for admission to the hospital. It is understood, however, that if the symptoms persist or worsen the patient needs to return immediately for re-evaluation. 10/15 20:04 Order name: CBC with Diff rn 10/15 20:04 Order name: Basic Metabolic Panel rn 10/15 20:05 Order name: CBC with Automated Diff; Complete Time: 22:12 EDMS 10/15 20:05 Order name: Basic Metabolic Panel; Complete Time: 22:12 EDMS 10/15 19:41 Order name: IV Start; Complete Time: 20:34 rn Administered Medications: 20:25 Drug: Zofran (Ondansetron) 4 mg Route: IVP; Site: left hand; bs2 23:36 Follow up: Response: No adverse reaction bs2 20:34 Drug: NS 0.9% 1000 ml Route: IV; Rate: 1000 ml; Site: left hand; bs2 23:36 Follow up: IV Status: Completed infusion; IV Intake: 1000ml bs2 20:34 Drug: NS 0.9% 1000 ml Route: IV; Rate: 1 bolus; Site: left hand; bs2 23:36 Follow up: IV Status: Completed infusion; IV Intake: 1000ml bs2 Disposition Summary: 10/15/20 22:27 Discharge Ordered Location: Home rn Problem: new rn Symptoms: have improved rn Condition: Stable rn Diagnosis - Dehydration rn - SARS-associated coronavirus as the cause of diseases classified elsewhere rn - Dizziness and giddiness rn - Diarrhea, unspecified rn - Vomiting rn Followup: rn - With: Private Physician - When: As needed - Reason: Recheck today's complaints, Re-evaluation by your physician Discharge Instructions: - Discharge Summary Sheet rn - Dehydration, Adult rn - Dizziness rn - COVID-19 rn - 10 Things You Can Do to Manage Your COVID-19 Symptoms at Home - CDC rn - Viral Illness, Adult rn Forms: - Medication Reconciliation Form rn - Thank You Letter rn - 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
[2020-10-16 00:02] VITALS: TEMP 98.6
[2020-10-16 00:03] VITALS: BP 146/91; O2SAT 99
== END 2020-10-15 23:47 | disposition home or self-care (01) ==
LOC: ER 18:24
DX: U07.1 COVID-19 (principal); R11.2 Nausea with vomiting, unspecified; R19.7 Diarrhea, unspecified; R42 Dizziness and giddiness; E86.0 Dehydration
CPT/HCPCS: 36415; 80048; 85025; 96361; 96374; 99284; J2405; J7030

== ENCOUNTER 2024-11-29 13:00 | Emergency (ER) | payer BC ==
[2024-11-29 14:24] LABS: PT Prothrombin Time 13.1 SECONDS (10-13.0); Protime INR 1.16
--- NOTE | 2024-11-29 14:25 | RAD REPORT ---
Procedure: Chest Single View HISTORY: Hypertension COMPARISON: none FINDINGS: The lungs appear clear of acute infiltrate. No significant pleural effusion noted. The heart is normal size. IMPRESSION: No acute abnormality is displayed.
[2024-11-29 14:27] LABS: Absolute Lymphocytes (CBC) 3.9 K/uL (0.7-4.9); Hematocrit 43.5 % (36.0-45.0); Hemoglobin 14.7 g/dL (12.0-15.0); MCH 28.4 pg (27.0-35.0); MCHC 33.7 g/dL (32.0-36.0); MCV 84.2 fL (80-100); MPV 7.6 fL (7.6-11.3); Nucleated RBC Absolute Count 0.0 (0-0); Nucleated Red Blood Cells % 0.1 % (0-0); RBC Red Blood Cell Count 5.17 M/uL (3.86-4.86); White Blood Count 9.80 thou/uL (4.3-10.9)
[2024-11-29 14:48] LABS: ALT/SGPT 31 U/L (13-56); AST/SGOT 16 U/L (15-37); Albumin 3.8 g/dL (3.4-5.0); Albumin/Globulin Ratio 0.9 (1.1-1.8); Alkaline Phosphatase 94 U/L (45-117); Anion Gap 7.9 mEq/L (5.0-15.0); BUN Blood Urea Nitrogen 13 mg/dL (7-18); Globulin 4.3 g/dL (2.3-3.5); Glucose Level 92 mg/dL (74-106); Magnesium 1.9 mg/dL (1.6-2.4); NT PRO-BNP 53 pg/mL (<125); Potassium 3.9 mEq/L (3.5-5.1); Thyroid Stimulating Hormone 1.720 uIU/mL (0.358-3.740)
[2024-11-29 14:50] LABS: Bilirubin Indirect, Calculated 0.2 mg/dL (0.2-0.8); Troponin High Sensitivity < 3.0 pg/mL (<58.9)
--- NOTE | 2024-11-29 15:01 | RAD REPORT ---
EXAMINATION: UPPER EXTREMITY VENOUS UNILATE CLINICAL INDICATION: Left upper extremity numbness TECHNIQUE: Complete bilateral duplex sonography of the left upper extremity veins was performed. The examination included compression for vein patency, color Doppler imaging and flow augmentation in response to distal compression of the internal jugular,, subclavian, axillary, brachial, radial, ulna r, cephalic and basilic veins. .Grayscale, color and spectral analysis performed on all vessels COMPARISON: No prior exam. FINDINGS: The left internal jugular, subclavian, axillary, brachial, basilic, cephalic, radial and ulnar veins are generally compressible and demonstrate augmentation. Color Doppler demonstrates good flow. IMPRESSION: No evidence of venous thrombus left upper extremity
--- NOTE | 2024-11-29 15:35 | RAD REPORT ---
EXAM: CT brain without contrast HISTORY: Headache. Numbness COMPARISON: 2019 TECHNIQUE: Multiple contiguous axial images were obtained and a CT of the brain without contrast.. Sagittal and coronal reconstruction performed. Automated exposure control, adjustment of the mA and/or kV according to patient size, and/or iterative reconstruction. Unless otherwise specified, incidental f indings do not require dedicated imaging follow-up FINDINGS: An intracranial bleed is not seen Ventricles are normal caliber No extra-axial fluid collection noted No significant hypodensity within the brain No fluid within the visualized sinuses or mastoids noted. IMPRESSION: No acute intracranial abnormality noted. If the patient continues to have symptoms to suggest an acute intracranial abnormality then MRI of th e brain would be recommended.
--- NOTE | 2024-11-29 15:38 | RAD REPORT ---
EXAM: C Spine Wo Con HISTORY: Radiculopathy and numbness COMPARISON: None TECHNIQUE: Multiple contiguous axial images were obtained in a CT of the cervical spine without contr ast. Sagittal and coronal reformats were performed. One or more of the following dose reduction techniques were used: Automated exposure control, adjustment of the mA and kV according to patient si ze, and iterative reconstruction. Unless otherwise specified, incidental findings do not require dedicated imaging follow-up. FINDINGS: No fracture seen No dislocation Mild spondylosis involves the cervical spine. No high-grade central/foraminal stenosis seen. IMPRESSION: No fracture seen No high-grade central/foraminal stenosis visualized. If patient continues to have symptoms to suggest spinal cord/spinal canal pathology then MRI would be recommended
--- NOTE | 2024-11-29 15:58 | EDPHYS ---
Physician Documentation [facility] Name: Yuliya Sharpe Age: 39 yrs Sex: Female : 1985 Arrival Date: 11/29/2024 Time: 13:00 Bed 14 Private MD: ED Physician Josesito Lopez HPI: 11/29 14:05 This 39 yrs old Female presents to ER via Ambulatory with complaints of High Blood sb4 Pressure, Abnormal EKG, Arm pain/swelling. 14:06 Patient states that she has been having some left-sided facial pain for a week or so sb4 now. States that she has also developed pain in her left arm, started in her hand and has slowly traveled up her arm all the way to the left side of her neck. States that it feels like a sharp tingly pain. She states that her hand has been swollen as well, had to take off her watch and ring. States that she went to urgent care today for the symptoms and also had an elevated blood pressure reading. They did an EKG and told her it was abnormal and to come to the ED. she denies any chest pain or shortness of breath, does endorse a left-sided headache. 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 - Infectious Disease History:: Denies. - Social history:: Smoking status: Patient denies any tobacco usage or history of. ROS: 14:08 Constitutional: Negative for fever, chills, and weight loss, sb4 14:08 MS/extremity: Positive for per HPI, 14:08 All other systems are negative, Exam: 14:09 Constitutional: This is a well developed, well nourished patient who is awake, alert, sb4 and in no acute distress. Head/Face: Normocephalic, atraumatic. Eyes: Extra-ocular motions intact. Periorbital areas with no swelling, redness, or edema. ENT: Mucous membranes moist. Neck: Supple, full range of motion without nuchal rigidity, or vertebral point tenderness. Cardiovascular: Regular rate and rhythm with a normal S1 and S2. Respiratory: No increased work of breathing, no retractions or nasal flaring. Abdomen/GI: Soft, non-tender, no distension. Skin: Warm, dry with normal turgor. Normal color with no rashes, no lesions, and no evidence of cellulitis. MS/ Extremity: Pulses equal, no cyanosis. Neurovascular intact. Full, normal range of motion. Vital Signs: 13:21 BP 150 / 98; Pulse 74; Resp 16; Temp 98; Pulse Ox 98% ; db 14:00 BP 136 / 93; Pulse 76; Resp 16; Pulse Ox 96% ; me1 15:00 BP 134 / 88; Pulse 78; Resp 19; Pulse Ox 99% ; me1 16:00 BP 122 / 91; Pulse 78; Resp 19; Temp 98.3; Pulse Ox 99% ; me1 MDM: 13:14 Medical Screening Exam initiated sb4 16:01 Data reviewed: vital signs, nurses notes, lab test result(s), EKG, radiologic studies, sb4 and as a result, I will discharge patient. Counseling: I had a detailed discussion with the patient and/or guardian regarding the historical points, exam findings, and any diagnostic results supporting the discharge/admit diagnosis, the presence of at least one elevated blood pressure reading (>120/80) during this emergency department visit, lab results, radiology results, the need for outpatient follow up, for definitive care, to return to the emergency department if symptoms worsen or persist or if there are any questions or concerns that arise at home. 16:07 Differential diagnosis: Cervical radiculopathy, complex migraine, DVT, electrolyte sb4 abnormality. Historians other than the Patient: Spouse/Significant Other: . 11/29 13:40 Order name: Basic Metabolic Panel; Complete Time: 14:50 sb4 11/29 13:40 Order name: CBC with Diff; Complete Time: 14:32 sb4 11/29 13:40 Order name: LFT's; Complete Time: 14:50 sb4 11/29 13:40 Order name: Magnesium; Complete Time: 14:50 sb4 11/29 13:40 Order name: NT PRO-BNP; Complete Time: 14:50 sb4 11/29 13:40 Order name: PT-INR; Complete Time: 14:28 sb4 11/29 13:40 Order name: Troponin HS; Complete Time: 14:50 sb4 11/29 13:40 Order name: Test, Serum; Complete Time: 14:28 sb4 11/29 13:40 Order name: TSH; Complete Time: 14:50 sb4 11/29 13:40 Order name: XRAY Chest (1 view); Complete Time: 14:28 sb4 11/29 13:44 Order name: UPPER EXTREMITY VENOUS UNILATE; Complete Time: 15:03 EDMS 11/29 14:52 Order name: C Spine W/O Contrast; Complete Time: 15:38 sb4 11/29 14:52 Order name: Head Brain Wo Cont CT; Complete Time: 15:38 sb4 11/29 13:40 Order name: Cardiac monitoring; Complete Time: 14:04 sb4 11/29 13:40 Order name: EKG - Nurse/Tech; Complete Time: 14:04 sb4 11/29 13:40 Order name: IV Saline Lock; Complete Time: 14:10 sb4 11/29 13:40 Order name: Labs collected and sent; Complete Time: 14:10 sb4 11/29 13:40 Order name: O2 Per Protocol; Complete Time: 14:10 sb4 11/29 13:40 Order name: O2 Sat Monitoring; Complete Time: 14:10 sb4 EC:04 Rate is 80 beats/min. Rhythm is regular, Normal Sinus Rhythm. KS interval is normal at sb4 130 msec. QRS interval is normal at 78 msec. QT interval is normal at 382 msec. No Q waves. T waves are Normal. No ST changes noted. Clinical impression: Normal ECG. Interpreted by me. Reviewed by me. Administered Medications: 16:09 Drug: Ketorolac IVP 15 mg IVP once Route: IVP; Site: left antecubital; [facility] 16:24 Follow up: Response: No adverse reaction; Pain is decreased [facility] 16:09 Drug: metoCLOPramide IVP 10 mg IVP once; over 1 to 2 minutes Route: IVP; Site: left ok1 antecubital; 16:24 Follow up: Response: No adverse reaction; Pain is decreased [facility] 16:09 Drug: diphenhydrAMINE IVP 25 mg IVP once Route: IVP; Site: left antecubital; me1 16:24 Follow up: Response: No adverse reaction; Pain is decreased me1 Disposition Summary: 11/29/24 15:57 Discharge Ordered Notes: Location: Home sb4 Problem: new sb4 Symptoms: have improved sb4 Condition: Stable sb4 Diagnosis - Elevated blood-pressure reading, without diagnosis of hypertension sb4 - Pain in left arm sb4 Followup: sb4 - With: Emergency Department - When: As needed - Reason: Trouble breathing, Worsening of condition Discharge Instructions: - Discharge Summary Sheet sb4 - Pinched Nerve sb4 - How to Take Your Blood Pressure, [id number] sb4 - Form - Blood Pressure Record Sheet sb4 Forms: - Patient Portal Instructions sb4 - Leadership Thank You Letter sb4 - Work release form me1 - Family Work Release me1 Prescriptions: - Ibuprofen 800 mg Oral Tablet - take 1 tablet ORAL route every 8 hours As needed take with food; 30 tablet; sb4 Refills: 0, Product Selection Permitted - Prednisone 20 mg Oral Tablet - take 1 tablet ORAL route once daily for 5 days; 5 tablet; Refills: 0, Product sb4 Selection Permitted - methocarbamol 750 mg Oral tablet - take 1 tablet ORAL route every 4 hours; 20 tablet; Refills: 0, Product sb4 Selection Permitted Signatures: Dispatcher [employer] EDShahana Donaldson, RN Sandie Langley PA-C PAMaryam sb4 Sravanthi West RN RN me1 Corrections: (The following items were deleted from the chart) 13:40 13:40 BASIC METABOLIC PANEL+C.LAB.BRZ ordered. EDMS EDMS 13:40 13:40 CBC+H.LAB.BRZ ordered. EDMS EDMS 13:40 13:40 HEPATIC FUNCTION+C.LAB.BRZ ordered. EDMS EDMS 13:40 13:40 MAGNESIUM+C.LAB.BRZ ordered. EDMS EDMS 13:40 13:40 PROBNP+C.LAB.BRZ ordered. EDMS EDMS 13:40 13:40 PROTIME (+INR)+COAG.LAB.BRZ ordered. EDMS EDMS 13:40 13:40 Troponin High Sensitivity+C.LAB.BRZ ordered. EDMS EDMS 13:40 13:40 TEST, SERUM+SC.LAB.BRZ ordered. EDMS EDMS 13:40 13:40 THYROID STIMULAT HORMONE+C.LAB.BRZ ordered. EDWV EDMS 13:40 13:40 Chest Single View+RAD.RAD.BRZ ordered. EDWV EDMS 13:41 13:41 Extremity Venous Uni Ltd+US.RAD.BRZ ordered. [facility] EDMS 14:08 14:06 Patient states that she has been having some left-sided facial pain. sb4 sb4 14:09 14:06 Patient states that she has been having some left-sided facial pain for a week or sb4 so now. States that she has also developed pain in her right arm, started in her hand and has slowly traveled up her arm all the way to the left side of her neck. States that feels like a sharp tingly pain. She states that her hand has been swollen as well, had to take off her watch. States that she went to urgent care today for the symptoms and also had an elevated blood pressure reading. They did an EKG and told her it was abnormal and to come to the ED. sb4 14:15 14:06 Patient states that she has been having some left-sided facial pain for a week or sb4 so now. States that she has also developed pain in her right arm, started in her hand and has slowly traveled up her arm all the way to the left side of her neck. States that feels like a sharp tingly pain. She states that her hand has been swollen as well, had to take off her watch. States that she went to urgent care today for the symptoms and also had an elevated blood pressure reading. They did an EKG and told her it was abnormal and to come to the ED. she denies any chest pain or shortness of breath, does endorse a left-sided headache. sb4 14:54 14:50 Differential diagnosis: Gastroenteritis, pancreatitis, gastritis, colitis, sb4 diverticulitis, dehydration, MARTINE sb4 14:54 14:50 Data reviewed: vital signs, nurses notes, lab test result(s), radiologic studies, sb4 and as a result, I will discharge patient, 4 14:54 14:50 Historians other than the Patient: Spouse/Significant Other: . sb4 sb4 14:54 14:50 Counseling: I had a detailed discussion with the patient and/or guardian sb4 regarding the historical points, exam findings, and any diagnostic results supporting the discharge/admit diagnosis, the presence of at least one elevated blood pressure reading (>120/80) during this emergency department visit, lab results, radiology results, the need for outpatient follow up, for definitive care, to return to the emergency department if symptoms worsen or persist or if there are any questions or concerns that arise at home, sb4
--- NOTE | 2024-11-29 15:58 | ER ---
Nurse's Notes [facility] Name: Yuliya Sharpe Age: 39 yrs Sex: Female : 1985 Arrival Date: 11/29/2024 Time: 13:00 Bed 14 Private MD: Diagnosis: Elevated blood-pressure reading, without diagnosis of hypertension;Pain in left arm Presentation: 11/29 13:21 Chief complaint: Patient states: SUBJECTIVE HTN AND LEFT RADICULOPATHY PATTERN PAIN. db Coronavirus screen: At this time, the client does not indicate any symptoms associated with coronavirus-19. Ebola Screen: No symptoms or risks identified at this time. Initial Sepsis Screen: Does the patient meet any 2 criteria? No. Patient's initial sepsis screen is negative. Does the patient have a suspected source of infection? No. Patient's initial sepsis screen is negative. Risk Assessment: Do you want to hurt yourself or someone else? Patient reports no desire to harm self or others. Onset of symptoms is unknown. 13:21 Method Of Arrival: Ambulatory db 13:21 Acuity: LIT 3 db Triage Assessment: 13:22 General: Appears in no apparent distress. Behavior is cooperative, appropriate for age, db anxious. Pain: Complains of pain in head. EENT: No deficits noted. Neuro: Reports headache. Cardiovascular: No deficits noted. Respiratory: No deficits noted. GI: No signs and/or symptoms were reported involving the gastrointestinal system. : No signs and/or symptoms were reported regarding the genitourinary system. Derm: No deficits noted. Musculoskeletal: No deficits noted. 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 - Infectious Disease History:: Denies. - Social history:: Smoking status: Patient denies any tobacco usage or history of. Screenin:41 [facility] ED Fall Risk Assessment (Adult) History of falling in the last 3 months, me1 including since admission No falls in past 3 months (0 pts) Confusion or Disorientation No (0 pts) Intoxicated or Sedated No (0 pts) Impaired Gait No (0 pts) Mobility Assist Device Used No (0 pt) Altered Elimination No (0 pt) Score/Fall Risk Level 0 - 2 = Low Risk Maintained a safe environment, Provided non-skid footwear, Hourly rounding (assess needs \T\ fall precautionary measures) done. Abuse screen: Denies threats or abuse. Nutritional screening: No deficits noted. Tuberculosis screening: No symptoms or risk factors identified. Assessment: 13:41 General: Appears uncomfortable, well groomed, well developed, well nourished, Behavior me1 is calm, cooperative, appropriate for age, Reports c/o PICHARDO and that her bp was elevated at home. Pain: Complains of pain in head Pain does not radiate. Pain currently is 6 out of 10 on a pain scale. Quality of pain is described as aching, Pain began gradually, Is continuous. Neuro: Level of Consciousness is awake, alert, obeys commands, Oriented to person, place, time, situation, Appropriate for age. Neuro: Reports headache. Cardiovascular: Patient's skin is warm and dry. Respiratory: Airway is patent Respiratory effort is even, unlabored, Respiratory pattern is regular, symmetrical. GI: No signs and/or symptoms were reported involving the gastrointestinal system. : No signs and/or symptoms were reported regarding the genitourinary system. EENT: No signs and/or symptoms were reported regarding the EENT system. Derm: Skin is intact, is healthy with good turgor, Skin is normal. Musculoskeletal: Circulation, motion, and sensation intact. Range of motion: intact in all extremities. Vital Signs: 13:21 BP 150 / 98; Pulse 74; Resp 16; Temp 98; Pulse Ox 98% ; db 14:00 BP 136 / 93; Pulse 76; Resp 16; Pulse Ox 96% ; me1 15:00 BP 134 / 88; Pulse 78; Resp 19; Pulse Ox 99% ; me1 16:00 BP 122 / 91; Pulse 78; Resp 19; Temp 98.3; Pulse Ox 99% ; me1 ED Course: 13:04 Patient arrived in ED. cj3 13:13 Sandie Lo PA-C is [facility]. sb4 13:13 Josesito Lopez MD is Attending Physician. sb4 13:22 Triage completed. db 13:22 Arm band placed on. db 13:25 Sravanthi West, RN is Primary Nurse. me1 13:41 Patient has correct armband on for positive identification. Bed in low position. Call me1 light in reach. Side rails up X2. Provided Education on: POC. Verbalized understanding.. Client placed on continuous cardiac and pulse oximetry monitoring. NIBP monitoring applied. electronic device monitor on. Pulse ox on. NIBP on. 13:41 No provider procedures requiring assistance completed. me1 14:04 EKG done, by ED staff, reviewed by Sandie Lo PA-C. me1 14:09 XRAY Chest (1 view) In Process Unspecified. EDMS 14:10 Initial lab(s) drawn, by asset availability leader, sent to lab. Inserted saline lock: 20 gauge in left ts3 antecubital area, using aseptic technique. Blood collected. Flushed with 10 mL NS. 14:33 UPPER EXTREMITY VENOUS UNILATE In Process Unspecified. EDMS 15:05 C Spine W/O Contrast In Process Unspecified. EDMS 15:05 Head Brain Wo Cont CT In Process Unspecified. EDMS 16:23 IV discontinued, intact, bleeding controlled, No redness/swelling at site. Pressure me1 dressing applied. Administered Medications: 16:09 Drug: Ketorolac IVP 15 mg IVP once Route: IVP; Site: left antecubital; me1 16:24 Follow up: Response: No adverse reaction; Pain is decreased me1 16:09 Drug: metoCLOPramide IVP 10 mg IVP once; over 1 to 2 minutes Route: IVP; Site: left me1 antecubital; 16:24 Follow up: Response: No adverse reaction; Pain is decreased me1 16:09 Drug: diphenhydrAMINE IVP 25 mg IVP once Route: IVP; Site: left antecubital; me1 16:24 Follow up: Response: No adverse reaction; Pain is decreased me1 Medication: 13:41 VIS not applicable for this client. me1 Outcome: 15:57 Discharge ordered by . sb4 16:23 Discharged to home ambulatory, with significant other, me1 16:23 Condition: stable 16:23 Discharge instructions given to patient, family, Instructed on discharge instructions, follow up and referral plans. medication usage, Demonstrated understanding of instructions, follow-up care, medications, Prescriptions given X 3, 16:23 Patient left the ED. me1 Signatures: Dispatcher [employer] Shahana Le RN RN db Brown, Sophia, GERALDINE PAMaryam sb4 Sravanthi West RN RN me1 Osiris Javed cj3 Yamile Frederick 3
[2024-11-29] MEDS ORDERED: METOCLOPRAMIDE 10 MG/2mL INJ ONE (16:05)
[2024-11-29] MEDS ORDERED: DIPHENHYDRAMINE 50 MG/ML VIAL ONE (16:05)
[2024-11-29] MEDS ORDERED: KETOROLAC 30 MG/ML INJ ONE (16:05)
[2024-11-29 17:11] VITALS: O2SAT 99
[2024-11-29 17:12] VITALS: BP 122/91; TEMP 98.3
== END 2024-11-29 16:23 | disposition home or self-care (01) ==
LOC: ER 13:00
DX: R03.0 Elevated blood-pressure reading, without diagnosis of hypertension (principal)
CPT/HCPCS: 93005; 85025; 80048; 36415; 83735; 84703; 85610; 80076; 84443; 84484; 83880; 70450; 72125; 71045; 93971; 96375; 96374; 99285; J1885; J2765; J1200